=== PATIENT | male | born 1975 | race Two or more races ===

== ENCOUNTER 2016-05-12 09:16 | Inpatient (IN) | payer MEDICAID ==
[~2016-05-12] VITALS: Ht 165.1 cm; Wt 63.5 kg
[2016-05-12 09:18] VITALS: BP 155/95; PULSE 92; RESP 20; TEMP 97.7; O2SAT 99
[2016-05-12 09:34] VITALS: BP 142/94; RESP 18; O2SAT 98
--- NOTE | 2016-05-12 09:55 | PD ---
HPI Chief Complaint: Abdominal Pain Time Seen by Provider: 09:43 Travel History International Travel<30 days: No Contact w/Intl Traveler<30days: No Traveled to known affect area: No History of Present Illness HPI 41-year-old male with no significant past medical history, here for evaluation of left-sided chest discomfort and abdominal discomfort. The patient reports that he has had a cough for the last couple of weeks which is nonproductive. He reports feeling an ache on the left side of his chest when he coughs and takes a deep breath. He also complains of some left upper quadrant abdominal discomfort after eating. No history of abdominal surgeries. No history of cardiac disease. No fevers. PFSH Past Medical History Medical History: Denies Significant Hx Tetanus Vaccination: Never Vaccinated Influenza Vaccination: No ?: Not Past Surgical History Surgical History: No Previous Surgery Social History Alcohol Use: No Tobacco Use: No Allergies-Medications (Allergen,Severity, Reaction): Coded Allergies: No Known Allergies (Unverified , 05/12/16) Reported Meds & Prescriptions Reported Meds & Active Scripts Active No Active Prescriptions or Reported Medications Review of Systems Except as stated in HPI: all other systems reviewed are Neg Physical Exam Narrative GENERAL: Well-developed, well-nourished, comfortable, no acute distress. SKIN: Warm and dry. HEAD: Atraumatic. Normocephalic. EYES: Pupils equal and round. No scleral icterus. No injection or drainage. ENT: Mucous membranes pink and moist. NECK: Trachea midline. No JVD. CARDIOVASCULAR: Regular rate and rhythm. RESPIRATORY: No accessory muscle use. Clear to auscultation. Breath sounds equal bilaterally. GASTROINTESTINAL: Abdomen soft, nondistended. Mild epigastric and left upper quadrant tenderness without peritoneal signs. Normal bowel sounds. MUSCULOSKELETAL: No obvious deformities. No clubbing. No cyanosis. No edema. NEUROLOGICAL: Awake and alert. No obvious cranial nerve deficits. Motor grossly within normal limits. Normal speech. PSYCHIATRIC: Appropriate mood and affect; insight and judgment normal. Data Data Last Documented VS Vital Signs Date Time Temp Pulse Resp B/P Pulse Ox O2 Delivery O2 Flow Rate FiO2 05/12/16 11:39 74 16 154/95 97 Room Air 05/12/16 09:18 97.7 Orders Electrocardiogram (05/12/16 09:46) Ckmb (Isoenzyme) Profile (05/12/16 09:46) Complete Blood Count With Diff (05/12/16 09:46) Comprehensive Metabolic Panel (05/12/16 09:46) D-Dimer (05/12/16 09:46) Magnesium (Mg) (05/12/16 09:46) Prothrombin Time / Inr (Pt) (05/12/16 09:46) Act Partial Throm Time (Ptt) (05/12/16 09:46) Troponin I (05/12/16 09:46) Chest, Single Ap (05/12/16 09:46) Ecg Monitoring (05/12/16 09:46) Iv Access Insert/Monitor (05/12/16 09:46) Oximetry (05/12/16 09:46) Sodium Chloride 0.9% Flush (Ns Flush) (05/12/16 10:00) Lipase (05/12/16 09:46) Al-Mag Hy-Si 40-40-4 Mg/Ml Liq (Mag-Al P (05/12/16 10:00) Lidocaine 2% Viscous (Xylocaine 2% Visco (05/12/16 10:00) Ketorolac Inj (Toradol Inj) (05/12/16 10:00) CKMB (05/12/16 10:00) CKMB% (05/12/16 10:00) Ct Abd/Pel W Iv Contrast(Rout) (05/12/16 ) Ct Pulmonary Angiogram (05/12/16 11:26) Morphine Inj (Morphine Inj) (05/12/16 11:30) Iohexol 350 Inj (Omnipaque 350 Inj) (05/12/16 12:10) Admit To Inpatient (05/12/16 ) Code Status (05/12/16 13:46) Vital Signs (Adult) Q4H (05/12/16 13:46) Activity Oob Ad Lilian (05/12/16 13:46) Intake + Output STEVAN.QSHIFT (05/12/16 13:46) Diet Npo (05/12/16 Lunch) Sodium Chlor 0.9% 1000 Ml Inj (Ns 1000 M (05/12/16 13:46) Sodium Chloride 0.9% Flush (Ns Flush) (05/12/16 14:00) Sodium Chloride 0.9% Flush (Ns Flush) (05/12/16 21:00) Ondansetron Inj (Zofran Inj) (05/12/16 14:00) Magnesium Hydroxide Liq (Milk Of Magnesi (05/12/16 14:00) Scd Bilateral/Knee High STEVAN.BID (05/12/16 13:46) Naloxone Inj (Narcan Inj) (05/12/16 14:00) Inpatient Certification (05/12/16 ) Hepatitis Profile (05/12/16 13:46) Us Abdomen Liver (05/12/16 ) Admit Order (Ed Use Only) (05/12/16 13:59) Labs Laboratory Tests Test 05/12/16 10:00 White Blood Count 5.8 TH/MM3 Red Blood Count 5.00 MIL/MM3 Hemoglobin 15.3 GM/DL Hematocrit 44.8 % Mean Corpuscular Volume 89.5 FL Mean Corpuscular Hemoglobin 30.6 PG Mean Corpuscular Hemoglobin 34.2 % Concent Red Cell Distribution Width 14.6 % Platelet Count 172 TH/MM3 Mean Platelet Volume 10.0 FL Neutrophils (%) (Auto) 54.4 % Lymphocytes (%) (Auto) 30.5 % Monocytes (%) (Auto) 13.6 % Eosinophils (%) (Auto) 1.0 % Basophils (%) (Auto) 0.5 % Neutrophils # (Auto) 3.2 TH/MM3 Lymphocytes # (Auto) 1.8 TH/MM3 Monocytes # (Auto) 0.8 TH/MM3 Eosinophils # (Auto) 0.1 TH/MM3 Basophils # (Auto) 0.0 TH/MM3 CBC Comment DIFF FINAL Differential Comment Prothrombin Time 10.7 SEC Prothromb Time International 1.0 RATIO Ratio Activated Partial 28.4 SEC Thromboplast Time D-Dimer Quantitative (PE/DVT) 0.99 MG/L FEU Sodium Level 136 MEQ/L Potassium Level 4.2 MEQ/L Chloride Level 99 MEQ/L Carbon Dioxide Level 27.5 MEQ/L Anion Gap 10 MEQ/L Blood Urea Nitrogen 11 MG/DL Creatinine 0.98 MG/DL Estimat Glomerular Filtration 85 ML/MIN Rate Random Glucose 96 MG/DL Calcium Level 8.9 MG/DL Magnesium Level 2.3 MG/DL Total Bilirubin 7.4 MG/DL Aspartate Amino Transf 1823 U/L (AST/SGOT) Alanine Aminotransferase 3662 U/L (ALT/SGPT) Alkaline Phosphatase 199 U/L Total Creatine Kinase 139 U/L Creatine Kinase MB 1.8 NG/ML Troponin I LESS THAN 0.02 NG/ML Total Protein 9.0 GM/DL Albumin 3.7 GM/DL Lipase 142 U/L [facility] Medical Decision Making Medical Screen Exam Complete: Yes Emergency Medical Condition: Yes Interpretation(s) EKG: Sinus, rate 72, normal axis, normal intervals, early repolarization, type III Brugada pattern Differential Diagnosis ACS, pneumothorax, pericarditis, PE, pneumonia, pleurisy, musculoskeletal pain, gastritis, peptic ulcer disease, pancreatitis, hepatobiliary disease Narrative Course Vital signs show heart rate 92, blood pressure 155/95, pulse ox 99% on room air , oral temp of 97.7F. CBC is unremarkable. CMP is remarkable for total bili 7.4, AST 1823, ALT 3662, alkaline phosphatase 199, otherwise unremarkable. Lipase is 142. Cardiac enzymes are negative. D-dimer is 0.99. Patient denies alcohol abuse, stating that he has not had an alcoholic beverage in the last 20 years.. He also denies illicit drug use. CT abdomen pelvis will be ordered to look for biliary obstruction as well as CT pulmonary angiogram for elevated d-dimer to rule out PE. CT abdomen pelvis: CONCLUSION: Possible medullary nephrocalcinosis. No acute CT findings in the abdomen or pelvis. CT pulmonary angiogram: CONCLUSION: 1. Minimal right basilar dependent atelectatic changes. 2. Otherwise negative. No acute infiltrate or pulmonary embolus to explain current clinical symptoms. The patient was made aware of all findings. He is still having some left upper quadrant abdominal discomfort. He will be admitted for further treatment and evaluation of acute hepatitis, hyperbilirubinemia. Case discussed with hospitalist Dr Zapien who will admit the patient to her service. Diagnosis Primary Impression: Acute hepatitis Additional Impression: Hyperbilirubinemia Admitting Information Admitting Physician Requests: Admit Scripts No Active Prescriptions or Reported Meds Hubert Osorio MD May 12, 2016 09:55
[2016-05-12] MEDS ORDERED: ALUMINUM/MAGNESIUM/SIMETH 30 ML CUP PO ONE (10:00)
[2016-05-12] MEDS ORDERED: SODIUM CHLORIDE 0.9% FLUSH 5 ML FLUSH IVF PRN (10:00)
[2016-05-12] MEDS ORDERED: LIDOCAINE VISCOUS 2% SOLN 15 ML UDC PO ONE (10:00)
[2016-05-12] MEDS ORDERED: KETOROLAC TROMETHAMINE 30 MG/ML (IVP) VIAL IV PUSH ONE (10:00)
[2016-05-12 10:30] LABS: AUTOMATED NEUTROPHIL # 3.2 TH/MM3 (1.8-7.7); BASOPHIL % 0.5 % (0.0-2.0); EOSINOPHIL # 0.1 TH/MM3 (0-0.4); HEMATOCRIT 44.8 % (39.0-51.0); HEMO FLAGS DIFF FINAL; LYMPH % 30.5 % (9.0-44.0); LYMPHOCYTE # 1.8 TH/MM3 (1.0-4.8); MEAN CELL VOLUME 89.5 FL (80.0-100.0); MEAN CORPUSCULAR HEMOGLOBIN 30.6 PG (27.0-34.0); MEAN CORPUSCULAR HGB CONC 34.2 % (32.0-36.0); MONO % 13.6 % (0.0-8.0); NEUT % 54.4 % (16.0-70.0); PLATELET COUNT 172 TH/MM3 (150-450); RED CELL DISTRIBUTION WIDTH 14.6 % (11.6-17.2); WHITE BLOOD COUNT 5.8 TH/MM3 (4.0-11.0)
[2016-05-12 10:47] LABS: APTT (PATIENT) 28.4 SEC (24.3-30.1); PROTHROMBIN TIME - PATIENT 10.7 SEC (9.8-11.6)
[2016-05-12 10:56] LABS: ANION GAP 10 MEQ/L (5-15); BICARBONATE 27.5 MEQ/L (21.0-32.0); BLOOD UREA NITROGEN 11 MG/DL (7-18); CHLORIDE 99 MEQ/L (98-107); GLOMERULAR FILTRATION RATE 85 ML/MIN (>89); MAGNESIUM 2.3 MG/DL (1.5-2.5); POTASSIUM 4.2 MEQ/L (3.5-5.1); SODIUM (NA) 136 MEQ/L (136-145)
[2016-05-12 11:11] LABS: ALKALINE PHOSPHATASE 199 U/L (45-117); ALT (GPT) 3662 U/L (12-78); AST (GOT) 1823 U/L (15-37); CREATINE KINASE 139 U/L (39-308); TOTAL BILIRUBIN ADULT 7.4 MG/DL (0.2-1.0)
[2016-05-12 11:24] LABS: CKMB 1.8 NG/ML (0.5-3.6)
[2016-05-12] MEDS ORDERED: MORPHINE SULFATE 4 MG/ML INJ IV PUSH ONE (11:30)
[2016-05-12 11:39] VITALS: BP 154/95; PULSE 74; RESP 16; O2SAT 97
[2016-05-12] MEDS ORDERED: IOHEXOL 350 MG/ML 10 ML VIAL (for RAD DIAG) IV ONE (12:10)
--- NOTE | 2016-05-12 12:52 | RADRPT ---
EXAM DATE/TIME: 05/12/2016 11:55 [facility] COMPARISON: No previous studies available for comparison. INDICATIONS : Chest pain. IV CONTRAST: 75 cc Omnipaque 350 (iohexol) IV ; Cumulative dose for multiple exams. RADIATION DOSE: 8.30 CTDIvol (mGy) ; Combined studies MEDICAL HISTORY : None SURGICAL HISTORY : None. ENCOUNTER: Initial ACUITY: 2 weeks PAIN SCALE: 4/10 LOCATION: Bilateral chest TECHNIQUE: Volumetric scanning of the chest was performed using a pulmonary embolism protocol MIP images were re constructed. Using automated exposure control and adjustment of the mA and/or kV according to patien t size, radiation dose was kept as low as reasonably achievable to obtain optimal diagnostic quality images. FINDINGS: PULMONARY ARTERIES: No filling defects are seen in the pulmonary arteries through the segmental level. LUNGS: There is no consolidation or pneumothorax . No concerning pulmonary nodule is visualized. Minimal ri ght basilar atelectatic changes. PLEURAE: There is no pleural thickening or pleural effusion. MEDIASTINUM: There is good visualization of the great vessels of the middle mediastinum. No evidence of mediastin al or hilar adenopathy/mass. MUSCULOSKELETAL: Within normal limits for patient age. MISCELLANEOUS: The visualized upper abdominal organs demonstrate no acute abnormality. Prominent left hepatic lobe w hich actually wraps around the convexity of the spleen. CONCLUSION: 1. Minimal right basilar dependent atelectatic changes. 2. Otherwise negative. No acute infiltrate or pulmonary embolus to explain current clinical symptoms. Yo Cage MD on May 12, 2016 at 12:49 Board Certified Radiologist. This report was verified electronically.
--- NOTE | 2016-05-12 12:55 | RADRPT ---
EXAM DATE/TIME: 05/12/2016 10:15 [facility] COMPARISON: No previous studies available for comparison. INDICATIONS : Chest pain. MEDICAL HISTORY : None. SURGICAL HISTORY : None. ENCOUNTER: Initial ACUITY: 1 day PAIN SCORE: 5/10 LOCATION: Left chest FINDINGS: A single view of the chest demonstrates the lungs to be symmetrically aerated without evidence of mas s, infiltrate or effusion. The cardiomediastinal contours are unremarkable. Osseous structures are intact. CONCLUSION: No acute cardiopulmonary process. Yo Cage MD on May 12, 2016 at 12:54 Board Certified Radiologist. This report was verified electronically.
--- NOTE | 2016-05-12 13:11 | RADRPT ---
EXAM DATE/TIME: 05/12/2016 11:58 [facility] COMPARISON: CT PULMONARY ANGIOGRAM, May 12, 2016, 11:55. INDICATIONS : Abdomen pain. IV CONTRAST: 75 cc Omnipaque 350 (iohexol) IV ; Cumulative dose for multiple exams. ORAL CONTRAST: No oral contrast ingested. RADIATION DOSE: 8.06 CTDIvol (mGy) ; Combined studies MEDICAL HISTORY : None SURGICAL HISTORY : None. ENCOUNTER: Initial ACUITY: 1 day PAIN SCALE: 4/10 LOCATION: Bilateral abdomen pain. TECHNIQUE: Volumetric scanning of the abdomen and pelvis was performed. Using automated exposure control and ad justment of the mA and/or kV according to patient size, radiation dose was kept as low as reasonably achievable to obtain optimal diagnostic quality images. FINDINGS: LOWER LUNGS: The visualized lower lungs are clear. LIVER: Homogeneous density without lesion. There is no dilation of the biliary tree. No calcified gallston es. SPLEEN: Normal size without lesion. PANCREAS: Within normal limits. KIDNEYS: Extremely dense opacification of the medullary pyramids which may reflect fortuitous dense contrast o pacification or medullary nephrocalcinosis. This could be better evaluated with noncontrast scanning at some point if clinically indicated. No evidence of focal mass or hydronephrosis. ADRENAL GLANDS: Within normal limits. VASCULAR: There is no aortic aneurysm. BOWEL/MESENTERY: The stomach, small bowel, and colon demonstrate no acute abnormality. There is no free intraperitone al air or fluid. ABDOMINAL WALL: Within normal limits. RETROPERITONEUM: There is no lymphadenopathy. BLADDER: No wall thickening or mass. REPRODUCTIVE: Within normal limits. INGUINAL: There is no lymphadenopathy or hernia. MUSCULOSKELETAL: Small enostosis E. 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 No acute CT findings in the abdomen or pelvis. Alber Vivar MD on May 12, 2016 at 13:04 Board Certified Radiologist. This report was verified electronically.
[2016-05-12] MEDS ORDERED: MAGNESIUM HYDROXIDE SUSP 30 ML CUP PO PRN (14:00)
[2016-05-12] MEDS ORDERED: NALOXONE HCL 0.4 MG/ML AMP IV PRN (14:00)
[2016-05-12] MEDS ORDERED: ONDANSETRON HCL 4 MG/2 ML VIAL IVP PRN (14:00)
[2016-05-12] MEDS ORDERED: SODIUM CHLORIDE 0.9% FLUSH 5 ML FLUSH FLUSH PRN (14:00)
--- NOTE | 2016-05-12 14:18 | EKG ---
Date Performed: 05/12/2016 Time Performed: 09:56:07 PTAGE: 41 years EKG: Sinus rhythm POSSIBLE RIGHT VENTRICULAR CONDUCTION DELAY MINIMAL VOLTAGE CRITERIA FOR LVH, CONSIDER NORMAL VARIAN T ST ELEVATION, PROBABLY EARLY REPOLARIZATION TYPE 3 BRUGADA PATTERN (NON-DIAGNOSTIC) BORDERLINE ECG NO PREVIOUS TRACING DOCTOR: Jan Corbett Interpretating Date/Time 05/12/2016 14:16:26
--- NOTE | 2016-05-12 14:18 | HHI.HP ---
[facility] No Primary Care Physician Admission Diagnosis acute hepatitis, hyperbilirubinemia Diagnoses: Chief Complaint: Chest pain rating down to the left side of the abdomen Travel History International Travel<30 Days: No Contact w/Intl Traveler <30 Da: No Traveled to Known Affected Are: No History of Present Illness This is a 41-year-old male with no past medical history whose presented with a cough that produces left-sided chest pain that went down to the abdomen for the past 2 weeks. Patient is [place]er-speaking but understands B[place]an. His stepson is at the bedside. Patient declined medical claims representative and wanted his stepson to translate. This pain has been intermittent and resolved on its own. Patient stated that the cough elicited the pain. He denies any nausea or vomiting. Denied any diarrhea or constipation. Patient stated that he has not had any recent travels. Patient stated that he denied any vaccination for hepatitis. Denies any history of alcohol use. When I asked patient about what the yellowing of his skin patient did not notice it. His also did not notice it. is at the bedside. No family history of any cancer. Patient stated all family members are healthy. Review of Systems Constitutional: DENIES: Diaphoretic episodes, Fatigue, Fever, Weight gain, Weight loss, Chills, Dizziness, Change in appetite, Night Sweats Endocrine: DENIES: Heat/cold intolerance, Polydipsia, Polyuria, Polyphagia Eyes: DENIES: Blurred vision, Diplopia, Eye inflammation, Eye pain, Vision loss , Photosensitivity, Double Vision Ears, nose, mouth, throat: DENIES: Tinnitus, Hearing loss, Vertigo, Nasal discharge, Oral lesions, Throat pain, Hoarseness, Ear Pain, Running Nose, Epistaxis, Sinus Pain, Toothache, Odynophagia Respiratory: DENIES: Apneas, Cough, Snoring, Wheezing, Hemoptysis, Sputum production, Shortness of breath Cardiovascular: COMPLAINS OF: Chest pain Gastrointestinal: COMPLAINS OF: Abdominal pain Genitourinary: DENIES: Sexual dysfunction, Urinary frequency, Urinary incontinence, Urgency, Hematuria, Dysuria, Nocturia, Penile Discharge, Testicular Pain, Testicular Swelling Musculoskeletal: DENIES: Joint pain, Muscle aches, Stiffness, Joint Swelling, Back pain, Neck pain Integumentary: DENIES: Abnormal pigmentation, Nail changes, Pruritus, Rash Hematologic/lymphatic: DENIES: Bruising, Lymphadenopathy Immunologic/allergic: DENIES: Eczema, Urticaria Neurologic: DENIES: Abnormal gait, Headache, Localized weakness, Paresthesias, Seizures, Speech Problems, Tremor, Poor Balance Psychiatric: DENIES: Anxiety, Confusion, Mood changes, Depression, Hallucinations, Agitation, Suicidal Ideation, Homicidal Ideation, Delusions Past Family Social History Past Medical History Denies any past medical history. Past Surgical History Denies any past surgical history. Reported Medications Reported Meds & Active Scripts Active No Active Prescriptions or Reported Medications Allergies: Coded Allergies: No Known Allergies (Unverified , 05/12/16) Active Ordered Medications Current Medications IV Flush (NS Flush) 2 ml UNSCH PRN IVF FLUSH AFTER USING IV ACCESS Last administered on 05/12/16 11:38; Start 05/12/16 at 10:00; Stop 05/12/16 at 14:02 ; Status DC Al Hydrox/Mg Hydrox/Simethicone (Mag-Al Plus Susp Liq) 30 ml ONCE ONCE PO Last administered on 05/12/16 10:12; Start 05/12/16 at 10:00; Stop 05/12/16 at 10:01; Status DC Lidocaine HCl (Xylocaine 2% Viscous) 15 ml ONCE ONCE PO Last administered on 10:12; Start 05/12/16 at 10:00; Stop 05/12/16 at 10:01; Status DC Ketorolac Tromethamine (Toradol Inj) 30 mg ONCE ONCE IV PUSH Last administered on 05/12/16 10:12; Start 05/12/16 at 10:00; Stop 05/12/16 at 10:01 ; Status DC Morphine Sulfate (Morphine Inj) 4 mg ONCE ONCE IV PUSH Last administered on 11:38; Start 05/12/16 at 11:30; Stop 05/12/16 at 11:31; Status DC Iohexol 75 ml 75 ml STK-MED ONCE IV Last administered on 05/12/16 12:10; Start 05/12/16 at 12:10; Stop 05/12/16 at 12:11; Status DC Sodium Chloride (NS 1000 ml Inj) 1,000 ml @ 100 mls/hr Q10H IV ; Start at 13:46 IV Flush (NS Flush) 2 ml UNSCH PRN FLUSH FLUSH AFTER USING IV ACCESS; Start at 14:00 IV Flush (NS Flush) 2 ml BID FLUSH ; Start 05/12/16 at 21:00 Ondansetron HCl (Zofran Inj) 4 mg Q6H PRN IVP NAUSEA OR VOMITING; Start at 14:00 Magnesium Hydroxide (Milk Of Magnesia Liq) 30 ml Q12H PRN PO CONSTIPATION; Start 05/12/16 at 14:00 Naloxone HCl (Narcan Inj) 0.4 mg UNSCH PRN IV SEE LABEL COMMENTS; Start at 14:00 Family History Patient denies any family history of cardiovascular disease, diabetes, liver disease or any cancer. He stated all family members are relatively healthy. Social History Patient was a home with his in [place]. Denies any tobacco, alcohol, and illicit drug use. Physical Exam Vital Signs Vital Signs Date Time Temp Pulse Resp B/P Pulse Ox O2 Delivery O2 Flow Rate FiO2 05/12/16 11:39 74 16 154/95 97 Room Air 05/12/16 09:34 18 142/94 98 Room Air 05/12/16 09:34 18 05/12/16 09:18 97.7 92 20 155/95 99 Room Air Physical Exam GENERAL: This is a well-nourished, well-developed patient, in no apparent distress. SKIN: No rashes, ecchymoses or lesions. Cool and dry. Patient appeared jaundiced. HEAD: Atraumatic. Normocephalic. No temporal or scalp tenderness. EYES: Pupils equal round and reactive. Extraocular motions intact. + scleral icterus. No injection or drainage. ENT: Nose without bleeding, purulent drainage or septal hematoma. Throat without erythema, tonsillar hypertrophy or exudate. Uvula midline. Airway patent. NECK: Trachea midline. No JVD or lymphadenopathy. Supple, nontender, no meningeal signs. CARDIOVASCULAR: Regular rate and rhythm without murmurs, gallops, or rubs. RESPIRATORY: Clear to auscultation. Breath sounds equal bilaterally. No wheezes , rales, or rhonchi. GASTROINTESTINAL: Abdomen soft, nondistended. mild tenderness with deep palpation in the left upper quadrant area. No hepato-splenomegaly, or palpable masses. No guarding. MUSCULOSKELETAL: Extremities without clubbing, cyanosis, or edema. No joint tenderness, effusion, or edema noted. No calf tenderness. Negative Homans sign bilaterally. NEUROLOGICAL: Awake and alert. Cranial nerves II through XII intact. Motor and sensory grossly within normal limits. Five out of 5 muscle strength in all muscle groups. Normal speech. Laboratory Laboratory Tests Test 05/12/16 10:00 White Blood Count 5.8 Red Blood Count 5.00 Hemoglobin 15.3 Hematocrit 44.8 Mean Corpuscular Volume 89.5 Mean Corpuscular Hemoglobin 30.6 Mean Corpuscular Hemoglobin 34.2 Concent Red Cell Distribution Width 14.6 Platelet Count 172 Mean Platelet Volume 10.0 Neutrophils (%) (Auto) 54.4 Lymphocytes (%) (Auto) 30.5 Monocytes (%) (Auto) 13.6 Eosinophils (%) (Auto) 1.0 Basophils (%) (Auto) 0.5 Neutrophils # (Auto) 3.2 Lymphocytes # (Auto) 1.8 Monocytes # (Auto) 0.8 Eosinophils # (Auto) 0.1 Basophils # (Auto) 0.0 CBC Comment DIFF FINAL Differential Comment Prothrombin Time 10.7 Prothromb Time International 1.0 Ratio Activated Partial 28.4 Thromboplast Time D-Dimer Quantitative (PE/DVT) 0.99 Sodium Level 136 Potassium Level 4.2 Chloride Level 99 Carbon Dioxide Level 27.5 Anion Gap 10 Blood Urea Nitrogen 11 Creatinine 0.98 Estimat Glomerular Filtration 85 Rate Random Glucose 96 Calcium Level 8.9 Magnesium Level 2.3 Total Bilirubin 7.4 Aspartate Amino Transf 1823 (AST/SGOT) Alanine Aminotransferase 3662 (ALT/SGPT) Alkaline Phosphatase 199 Total Creatine Kinase 139 Creatine Kinase MB 1.8 Troponin I LESS THAN 0.02 Total Protein 9.0 Albumin 3.7 Lipase 142 Result Diagram: 05/12/16 1000 05/12/16 [address] Angiography 05/12/16 1126 Signed Impressions: Service Date/Time: Thursday, May 12, 2016 11:55 - CONCLUSION: 1. Minimal right basilar dependent atelectatic changes. 2. Otherwise negative. No acute infiltrate or pulmonary embolus to explain current clinical symptoms. Yo Cage MD Chest X-Ray 05/12/16 0946 Signed Impressions: Service Date/Time: Thursday, May 12, 2016 10:15 - CONCLUSION: No acute cardiopulmonary process. 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 No acute CT findings in the abdomen or pelvis. Alber Vivar MD Assessment and Plan Assessment and Plan 41-year-old male with left-sided chest pain radiating down to the upper abdomen. left sided chest pain -Occurred with cough. May be secondary to pleurisy. -Unlikely cardiac in nature. Will get troponin and monitor. Jaundice -Patient has a questionable left upper quadrant pain that is not that significant. He does not have any right upper quadrant pain and is asymptomatic. -LFTs are elevated including bilirubin. Lipase negative. -CT scan of abdomen and chest were review and not impressive. -We'll get liver ultrasound and hepatitis panel. also get lipid panel. Consult GI. Elevated liver enzymes. -See treatment as above. -We will continue to trend and monitor. -Avoid medications are excreted by liver and adjust accordingly. DVTs prophylaxis SCDs Code Status full Discussed Condition With patient, his and step son Tate who translated. Physician Certification 2 Midnight Certification Type: Admission for Inpatient Services Order for Inpatient Services The services are ordered in accordance with Medicare regulations or non- Medicare payer requirements, as applicable. In the case of services not specified as inpatient-only, they are appropriately provided as inpatient services in accordance with the 2-midnight benchmark. Estimated LOS (days): 2 2 days is the estimated time the patient will need to remain in the hospital, assuming treatment plan goals are met and no additional complications. Post-Hospital Plan: Katlin Wilder MD May 12, 2016 14:18
--- NOTE | 2016-05-12 15:45 | RADRPT ---
EXAM DATE/TIME: 05/12/2016 14:48 [facility] COMPARISON: No previous studies available for comparison. INDICATIONS : Increased lab values. MEDICAL HISTORY : Abdomen pain. SURGICAL HISTORY : None. ENCOUNTER: Initial ACUITY: 1 day PAIN SCORE: 3/10 LOCATION: Right upper quadrant MEASUREMENTS: LIVER: 16.4 cm length COMMON DUCT: 3 mm RIGHT KIDNEY: 11.2 x 4.5 x 5.4 cm SPLEEN: 12.9 cm length FINDINGS: LIVER: Mild hepatomegaly is noted. Normal echotexture without focal lesion or ductal dilatation. COMMON DUCT: No intraluminal mass or stone visualized. GALLBLADDER: Contains no stones, demonstrates no wall thickening or pericholecystic fluid. PANCREAS: The visualized portions are within normal limits. RIGHT KIDNEY: No hydronephrosis or mass. There is a 5 mm calcified nonobstructing right midpole renal calculus SPLEEN: Mild splenomegaly is noted. No focal lesion. An accessory spleen measuring 1.7 cm is noted. CONCLUSION: 1. Mild hepatosplenomegaly. 2. 5 mm calcified nonobstructing midpole right renal calculus. Tyrell Wilkinson MD on May 12, 2016 at 15:41 Board Certified Radiologist. This report was verified electronically.
[2016-05-12] MEDS: SODIUM CHLOR 0.9% 1000 ML INJ 1,000 ML IV SCH ×2 (16:19→23:19)
[2016-05-12 16:25] VITALS: BP 150/83; PULSE 70; RESP 17; O2SAT 98
[2016-05-12 20:00] VITALS: BP 123/79; PULSE 57; RESP 20; TEMP 97.7; O2SAT 97
[2016-05-12] MEDS: SODIUM CHLORIDE 0.9% FLUSH 5 ML FLUSH FLUSH SCH (21:00)
[2016-05-13] VITALS: BP 126/78; PULSE 69; RESP 19; TEMP 97.6; O2SAT 95
[2016-05-13 00:52] LABS: ANION GAP 10 MEQ/L (5-15); BICARBONATE 27.3 MEQ/L (21.0-32.0); BLOOD UREA NITROGEN 12 MG/DL (7-18); CHLORIDE 104 MEQ/L (98-107); SODIUM (NA) 141 MEQ/L (136-145)
[2016-05-13 00:58] LABS: ALKALINE PHOSPHATASE 152 U/L (45-117); ALT (GPT) 3158 U/L (12-78); AST (GOT) 1556 U/L (15-37); INDIRECT BILIRUBIN 1.7 MG/DL (0.0-0.8); TOTAL BILIRUBIN ADULT 7.1 MG/DL (0.2-1.0)
[2016-05-13 05:14] LABS: MEAN CELL VOLUME 88.7 FL (80.0-100.0); PLATELET COUNT 167 TH/MM3 (150-450); RED BLOOD COUNT 4.51 MIL/MM3 (4.50-5.90); RED CELL DISTRIBUTION WIDTH 14.5 % (11.6-17.2); REVIEW FLAG FINAL; WHITE BLOOD COUNT 4.6 TH/MM3 (4.0-11.0)
[2016-05-13] MEDS: SODIUM CHLORIDE 0.9% FLUSH 5 ML FLUSH FLUSH SCH ×2 (07:58→21:00)
[2016-05-13 08:00] VITALS: BP 130/74; PULSE 72; RESP 18; TEMP 97.4; O2SAT 98
--- NOTE | 2016-05-13 10:18 | EKG ---
Date Performed: 05/12/2016 Time Performed: 16:38:27 PTAGE: 41 years EKG: Sinus rhythm POSSIBLE RIGHT VENTRICULAR CONDUCTION DELAY ST ELEVATION, PROBABLY EARLY REPOLARIZATION PREVIOUS TRACING : 05/12/2016 09.56 DOCTOR: Boom Lynn Interpretating Date/Time 05/13/2016 10:16:27
[2016-05-13] MEDS: SODIUM CHLOR 0.9% 1000 ML INJ 1,000 ML IV SCH ×2 (10:25→21:59)
[2016-05-13 12:00] VITALS: BP 144/71; PULSE 75; RESP 16; TEMP 97.2; O2SAT 99
--- NOTE | 2016-05-13 12:01 | PD.CONS ---
HPI History of Present Illness This is a 41 year old male who came to the ER for evaluation of left-sided chest and abdominal discomfort. He reported a nonproductive cough for a few weeks and started having a discomfort described as an ache on the left side of his chest, aggravated by coughing and deep breathing. He also complained of some LUQ discomfort after eating. He was noted to have significantly elevated LFTs and admitted for further evaluation. His troponins have been negative and it is suspected that his chest pain is pleuritic in nature. On admission, he was noted to have elevated LFTs with total bilirubin 7.4, AST 1823, ALT 3662, alkaline phosphatase 199. His coags are normal. His platelets are normal. His albumin was normal on admission. Hepatitis panel is pending. He reports that his chest pain and abdominal discomfort have since subsided. He has a mild epigastric tenderness in his LUQ on exam, but denies pain. He denies any fevers, chills, headaches, nausea, vomiting, current abdominal pain, constipation, diarrhea, melena, or red blood in his stool. He denies any weakness or malaise. He denies any known hx of liver disease such as hepatitis. He denies the use of any alcohol. He denies the use of any Tylenol or Tylenol containing products. When his LUQ discomfort originally began, he did take a liquid antacid and reports that this helped, but is not taking this now. He did start taking a men's once a day vitamin about 2 weeks ago and a couple of time, he forgot to take this and so a couple of days, he took two at a time. 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 (Ledy Sanchez) [facility] Past Medical History Denies Past Surgical History Denies (Ledy Sanchez) Coded Allergies: No Known Allergies (Unverified , 05/12/16) Medications Allergies Coded Allergies Type Severity Reaction Last Updated Verified No Known Allergies 05/12/16 No Active Scripts Medications Dose Route/Sig Days Date Category No Active Prescriptions or Reported Medications Rx Family History Patient denies any family history of cardiovascular disease, diabetes, liver disease or any cancer. He stated all family members are relatively healthy. Social History Denies any tobacco, alcohol, and illicit drug use. (Ledy Sanchez CHAYA) Review of Systems Constitutional: DENIES: Fatigue, Fever, Chills Respiratory: DENIES: Cough Cardiovascular: COMPLAINS OF: Chest pain (resolved now) Gastrointestinal: COMPLAINS OF: Abdominal pain, DENIES: Black stools, Bloody stools, Constipation, Diarrhea, Nausea, Vomiting, Anorexia, Swelling of Abdomen , Heartburn, Hematemesis Integumentary: COMPLAINS OF: Jaundice, DENIES: Abnormal pigmentation Hematologic/lymphatic: DENIES: Bruising Psychiatric: DENIES: Confusion (Ledy Sanchez CHAYA) GI Exam Vitals I&O Vital Signs Date Time Temp Pulse Resp B/P Pulse Ox O2 Delivery O2 Flow Rate FiO2 05/13/16 08:00 97.4 72 18 130/74 98 05/13/16 00:00 97.6 69 19 126/78 95 05/12/16 20:00 97.7 57 20 123/79 97 05/12/16 16:25 70 17 150/83 98 Room Air I/O 05/12/16 05/12/16 05/12/16 05/13/16 05/13/16 05/13/16 07:00 15:00 23:00 07:00 15:00 23:00 Intake Total 660 ml 563 ml Output Total 250 ml Balance 660 ml 313 ml Intake Oral 0 ml 0 ml IV Total 660 ml 563 ml Output Urine Total 250 ml # Voids 0 # Bowel Movements 0 [address] Angiography 05/12/16 1126 Signed Impressions: Service Date/Time: Thursday, May 12, 2016 11:55 - CONCLUSION: 1. Minimal right basilar dependent atelectatic changes. 2. Otherwise negative. No acute infiltrate or pulmonary embolus to explain current clinical symptoms. Yo Cage MD Chest X-Ray 05/12/16 0946 Signed Impressions: Service Date/Time: Thursday, May 12, 2016 10:15 - CONCLUSION: No acute cardiopulmonary process. Yo Cage MD Liver Ultrasound 05/12/16 0000 Signed Impressions: Service Date/Time: Thursday, May 12, 2016 14:48 - CONCLUSION: 1. Mild hepatosplenomegaly. 2. 5 mm calcified nonobstructing midpole right renal calculus. Tyrell Wilkinson MD Abdomen/Pelvis CT 05/12/16 0000 Signed Impressions: Service Date/Time: Thursday, May 12, 2016 11:58 - CONCLUSION: Possible medullary nephrocalcinosis. No acute CT findings in the abdomen or pelvis. Alber Vivar MD Laboratory Test 05/12/16 05/12/16 05/13/16 16:00 23:50 04:43 Troponin I LESS THAN 0.02 LESS THAN 0.02 NG/ML NG/ML Sodium Level 141 MEQ/L Potassium Level 4.0 MEQ/L Chloride Level 104 MEQ/L Carbon Dioxide Level 27.3 MEQ/L Anion Gap 10 MEQ/L Blood Urea Nitrogen 12 MG/DL Creatinine 0.87 MG/DL Random Glucose 77 MG/DL Calcium Level 8.6 MG/DL Total Bilirubin 7.1 MG/DL Direct Bilirubin 5.4 MG/DL Indirect Bilirubin 1.7 MG/DL Aspartate Amino Transf 1556 U/L (AST/SGOT) Alanine Aminotransferase 3158 U/L (ALT/SGPT) Alkaline Phosphatase 152 U/L Total Protein 7.3 GM/DL Albumin 3.2 GM/DL White Blood Count 4.6 TH/MM3 Red Blood Count 4.51 MIL/MM3 Hemoglobin 14.0 GM/DL Hematocrit 40.0 % Mean Corpuscular Volume 88.7 FL Mean Corpuscular Hemoglobin 31.0 PG Mean Corpuscular Hemoglobin 35.0 % Concent Red Cell Distribution Width 14.5 % Platelet Count 167 TH/MM3 Mean Platelet Volume 10.1 FL Physical Examination HEENT: Normocephalic; atraumatic; + jaundice. CHEST: CTA CARDIAC: RRR ABDOMEN: Soft, nondistended, mild LUQ tenderness; no hepatosplenomegaly; bowel sounds are present in all four quadrants. EXTREMITIES: No clubbing, cyanosis, or edema. SKIN: Normal; no rash; + jaundice. 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 (Ledy Sanchez) Assessment and Plan Plan ASSESSMENT: - Acute hepatitis, elevated LFTs. Abdomen/Pelvis CT (05/12/16)----> Possible medullary nephrocalcinosis. No acute CT findings in the abdomen or pelvis. Liver Ultrasound (05/12/16)----> 1. Mild hepatosplenomegaly. 2. 5 mm calcified nonobstructing midpole right renal calculus. On admission, he was noted to have elevated LFTs with total bilirubin 7.4, AST 1823, ALT 3662, alkaline phosphatase 199. These are essentially unchanged today. No etoh, no tylenol use, only new meds was a liquid antacid and he recently started a men's once day mvi. One tattoo, performed in [facility] many years ago. No new sexual partners. Hepatitis profile pending. Will await this. Liver workup ordered. - LUQ Pain. Improved. He had with left sided chest pain after nonproductive. He denies pain at this time, but has mild LUQ tenderness on exam. - Left sided chest pain. Troponins were negative. Likely pleuritc. Resolved. PLAN: - Regular diet - Await hepatitis panel - AFP - ANIL, ASMA, AMA - Ceruloplasmin, Alpha 1 antitrypsin - Ferritin, Iron saturation - Monitor LFT - Acetaminophen level - Supportive care - Further recommendations to follow based on results of above - Pt seen and examined by Dr. Montes and myself and this note is written on his behalf (Ledy Sanchez) Physician Comments seen, examined agree with above (Iris Montes MD) Ledy Sanchez May 13, 2016 12:01 Iris Montes MD May 13, 2016 16:45
[2016-05-13 13:25] LABS: TRANSFERRIN IRON PROFILE 291 MG/DL (200-360)
[2016-05-13 13:40] LABS: FERRITIN 2162 NG/ML (26-388)
[2016-05-13 13:41] LABS: ACETAMINOPHEN LESS THAN 2.0 MCG/ML (10.0-30.0)
--- NOTE | 2016-05-13 13:41 | HHI.PR ---
Subjective Remarks f/u for abdominal pain, chest pain. patient denied any pain. He is asking to eat. 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 he is responding appropriately. Objective Vitals Vital Signs Date Time Temp Pulse Resp B/P Pulse Ox O2 Delivery O2 Flow Rate FiO2 05/13/16 12:00 97.2 75 16 144/71 99 05/13/16 08:00 97.4 72 18 130/74 98 05/13/16 00:00 97.6 69 19 126/78 95 05/12/16 20:00 97.7 57 20 123/79 97 05/12/16 16:25 70 17 150/83 98 Room Air I/O 05/12/16 05/12/16 05/12/16 05/13/16 05/13/16 05/13/16 07:00 15:00 23:00 07:00 15:00 23:00 Intake Total 660 ml 563 ml Output Total 250 ml Balance 660 ml 313 ml Intake Oral 0 ml 0 ml IV Total 660 ml 563 ml Output Urine Total 250 ml # Voids 0 # Bowel Movements 0 0 Result Diagram: 05/13/16 0443 05/12/[address] Angiography 05/12/16 1126 Signed Impressions: Service Date/Time: Thursday, May 12, 2016 11:55 - CONCLUSION: 1. Minimal right basilar dependent atelectatic changes. 2. Otherwise negative. No acute infiltrate or pulmonary embolus to explain current clinical symptoms. Yo Cage MD Chest X-Ray 05/12/16 0946 Signed Impressions: Service Date/Time: Thursday, May 12, 2016 10:15 - CONCLUSION: No acute cardiopulmonary process. Yo Cage MD Liver Ultrasound 05/12/16 0000 Signed Impressions: Service Date/Time: Thursday, May 12, 2016 14:48 - CONCLUSION: 1. Mild hepatosplenomegaly. 2. 5 mm calcified nonobstructing midpole right renal calculus. Tyrell Wilkinson MD Abdomen/Pelvis CT 05/12/16 0000 Signed Impressions: Service Date/Time: Thursday, May 12, 2016 11:58 - CONCLUSION: Possible medullary nephrocalcinosis. No acute CT findings in the abdomen or pelvis. Alber Vivar MD Objective Remarks GENERAL: SKIN: Warm and dry.mildly jaundice. HEAD: Normocephalic. EYES: + scleral icterus improved. No injection or drainage. NECK: Supple, trachea midline. No JVD or lymphadenopathy. CARDIOVASCULAR: Regular rate and rhythm without murmurs, gallops, or rubs. RESPIRATORY: Breath sounds equal bilaterally. No accessory muscle use. GASTROINTESTINAL: Abdomen soft, non-tender, nondistended. MUSCULOSKELETAL: No cyanosis, or edema. BACK: Nontender without obvious deformity. No CVA tenderness. Medications and IVs Current Medications IV Flush (NS Flush) 2 ml UNSCH PRN IVF FLUSH AFTER USING IV ACCESS Last administered on 05/12/16 11:38; Start 05/12/16 at 10:00; Stop 05/12/16 at 14:02 ; Status DC Al Hydrox/Mg Hydrox/Simethicone (Mag-Al Plus Susp Liq) 30 ml ONCE ONCE PO Last administered on 05/12/16 10:12; Start 05/12/16 at 10:00; Stop 05/12/16 at 10:01; Status DC Lidocaine HCl (Xylocaine 2% Viscous) 15 ml ONCE ONCE PO Last administered on 10:12; Start 05/12/16 at 10:00; Stop 05/12/16 at 10:01; Status DC Ketorolac Tromethamine (Toradol Inj) 30 mg ONCE ONCE IV PUSH Last administered on 05/12/16 10:12; Start 05/12/16 at 10:00; Stop 05/12/16 at 10:01 ; Status DC Morphine Sulfate (Morphine Inj) 4 mg ONCE ONCE IV PUSH Last administered on 11:38; Start 05/12/16 at 11:30; Stop 05/12/16 at 11:31; Status DC Iohexol 75 ml 75 ml STK-MED ONCE IV Last administered on 05/12/16 12:10; Start 05/12/16 at 12:10; Stop 05/12/16 at 12:11; Status DC Sodium Chloride (NS 1000 ml Inj) 1,000 ml @ 100 mls/hr Q10H IV Last administered on 05/13/16 10:25; Start 05/12/16 at 13:46 IV Flush (NS Flush) 2 ml UNSCH PRN FLUSH FLUSH AFTER USING IV ACCESS; Start at 14:00 IV Flush (NS Flush) 2 ml BID FLUSH ; Start 05/12/16 at 21:00 Ondansetron HCl (Zofran Inj) 4 mg Q6H PRN IVP NAUSEA OR VOMITING; Start at 14:00 Magnesium Hydroxide (Milk Of Magnbrijesh Liq) 30 ml Q12H PRN PO CONSTIPATION; Start 05/12/16 at 14:00 Naloxone HCl (Narcan Inj) 0.4 mg UNSCH PRN IV SEE LABEL COMMENTS; Start at 14:00 A/P Assessment and Plan 41-year-old male with left-sided chest pain radiating down to the upper abdomen. left sided chest pain -Occurred with cough. May be secondary to pleurisy. -Unlikely cardiac in nature. -asymptomatic since he was last seen. troponin's negative. Jaundice -improved. -see below. Hepatitis -LFTs has not trend down and still elevated. -CT scan of abdomen and chest were review and not impressive, lipase negative. liver us not impression. -GI recommend AFP, ANIL, ASMA, AMA, Ceruloplasmin, Alpha 1 antitrypsin, Ferritin , Iron saturation, Monitor LFT, Acetaminophen level. further recommendations depending results. -avoid anything toxic to lo DVTs prophylaxis -SCDs Katlin Zapien MD May 13, 2016 13:40
[2016-05-13 16:00] VITALS: BP 143/77; PULSE 70; RESP 17; TEMP 96.5; O2SAT 98
[2016-05-13 20:00] VITALS: BP 146/86; PULSE 68; RESP 21; TEMP 98.1; O2SAT 99
[2016-05-14] VITALS: BP 141/79; PULSE 102; RESP 20; TEMP 96.7; O2SAT 99
[2016-05-14 05:38] LABS: INDIRECT BILIRUBIN 1.3 MG/DL (0.0-0.8); TOTAL BILIRUBIN ADULT 4.9 MG/DL (0.2-1.0)
[2016-05-14] MEDS: SODIUM CHLOR 0.9% 1000 ML INJ 1,000 ML IV SCH ×2 (05:41→17:16)
[2016-05-14 08:00] VITALS: BP 144/81; PULSE 64; RESP 18; TEMP 97.1; O2SAT 98
[2016-05-14] MEDS: SODIUM CHLORIDE 0.9% FLUSH 5 ML FLUSH FLUSH SCH ×2 (08:31→21:00)
--- NOTE | 2016-05-14 09:20 | HHI.GIFU ---
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 Throat is clear. NECK: Neck is supple, no JVD, no lymphadenopathy. CHEST: Chest is clear to auscultation and percussion. CARDIAC: Regular rate and rhythm with no murmur gallop or rubs. ABDOMEN: Soft, nondistended, nontender; no hepatosplenomegaly; bowel sounds are present in all four quadrants. EXTREMITIES: No clubbing, cyanosis, or edema. SKIN: Normal; no rash; jaundice. 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 Available Data (labs, X- Rays, Procedues) : Laboratory Tests Test 05/12/16 05/12/16 05/12/16 05/13/16 10:00 16:00 23:50 04:43 White Blood Count 5.8 TH/MM3 4.6 TH/MM3 Red Blood Count 5.00 MIL/MM3 4.51 MIL/MM3 Hemoglobin 15.3 GM/DL 14.0 GM/DL Hematocrit 44.8 % 40.0 % Mean Corpuscular Volume 89.5 FL 88.7 FL Mean Corpuscular Hemoglobin 30.6 PG 31.0 PG Mean Corpuscular Hemoglobin 34.2 % 35.0 % Concent Red Cell Distribution Width 14.6 % 14.5 % Platelet Count 172 TH/MM3 167 TH/MM3 Mean Platelet Volume 10.0 FL 10.1 FL Neutrophils (%) (Auto) 54.4 % Lymphocytes (%) (Auto) 30.5 % Monocytes (%) (Auto) 13.6 % Eosinophils (%) (Auto) 1.0 % Basophils (%) (Auto) 0.5 % Neutrophils # (Auto) 3.2 TH/MM3 Lymphocytes # (Auto) 1.8 TH/MM3 Monocytes # (Auto) 0.8 TH/MM3 Eosinophils # (Auto) 0.1 TH/MM3 Basophils # (Auto) 0.0 TH/MM3 CBC Comment DIFF FINAL Differential Comment Prothrombin Time 10.7 SEC Prothromb Time International 1.0 RATIO Ratio Activated Partial 28.4 SEC Thromboplast Time D-Dimer Quantitative (PE/DVT) 0.99 MG/L FEU Sodium Level 136 MEQ/L 141 MEQ/L Potassium Level 4.2 MEQ/L 4.0 MEQ/L Chloride Level 99 MEQ/L 104 MEQ/L Carbon Dioxide Level 27.5 MEQ/L 27.3 MEQ/L Anion Gap 10 MEQ/L 10 MEQ/L Blood Urea Nitrogen 11 MG/DL 12 MG/DL Creatinine 0.98 MG/DL 0.87 MG/DL Estimat Glomerular Filtration 85 ML/MIN Rate Random Glucose 96 MG/DL 77 MG/DL Calcium Level 8.9 MG/DL 8.6 MG/DL Magnesium Level 2.3 MG/DL Total Bilirubin 7.4 MG/DL 7.1 MG/DL Aspartate Amino Transf 1823 U/L 1556 U/L (AST/SGOT) Alanine Aminotransferase 3662 U/L 3158 U/L (ALT/SGPT) Alkaline Phosphatase 199 U/L 152 U/L Total Creatine Kinase 139 U/L Creatine Kinase MB 1.8 NG/ML Troponin I LESS THAN 0.02 LESS THAN 0.02 LESS THAN 0.02 NG/ML NG/ML NG/ML Total Protein 9.0 GM/DL 7.3 GM/DL Albumin 3.7 GM/DL 3.2 GM/DL Lipase 142 U/L Direct Bilirubin 5.4 MG/DL Indirect Bilirubin 1.7 MG/DL Hepatitis A IgM Antibody NEGATIVE Hepatitis B Surface Antigen POSITIVE Hepatitis B Core IgM Antibody REACTIVE Hepatitis C Antibody NEGATIVE Test 05/13/16 05/14/16 12:46 04:17 Iron Level 122 MCG/DL Total Iron Binding Capacity 407 MCG/DL Percent Iron Saturation 29.9 % Ferritin 2162 NG/ML Tumor Marker Alpha Fetoprotein 71.3 NG/ML Acetaminophen Level LESS THAN 2.0 MCG/ML Total Bilirubin 4.9 MG/DL Direct Bilirubin 3.6 MG/DL Indirect Bilirubin 1.3 MG/DL Aspartate Amino Transf 1162 U/L (AST/SGOT) Alanine Aminotransferase 2491 U/L (ALT/SGPT) Alkaline Phosphatase 158 U/L Total Protein 7.1 GM/DL Albumin 2.9 GM/DL ASSESSMENT/PLAN: acute hepatitis B-improving, no signs of liver failure Recommendations fax results to department of health we will wait and see if he will clear virus on his own,if still present at 6 month or worsening labs or clinical status treatment will be offered observe for 1 more day if dc fu office or pcp in 1-2 weeks with repeat lfts, cbc, inr educated about mode of transmission, protection family and contact to be screened and vaccinated-they will need to contact pcp/ department of health It was a pleasure seeing Kwasi Lucio. Thank you for this consult. Entered by: Iris Rivera MD May 14, 2016 09:20
[2016-05-14 12:00] VITALS: BP 141/92; PULSE 64; RESP 12; TEMP 95.2; O2SAT 98
[2016-05-14 12:05] LABS: PROTHROMBIN TIME - PATIENT 11.2 SEC (9.8-11.6)
--- NOTE | 2016-05-14 15:07 | HHI.PR ---
Subjective Remarks f/u for hepatitis patient has no complaints. Denied any abdominal pain, N/V. remains afebrile. tolerated diet. 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 his is at bedside. Objective Vitals Vital Signs Date Time Temp Pulse Resp B/P Pulse Ox O2 Delivery O2 Flow Rate FiO2 05/14/16 12:00 95.2 64 12 141/92 98 05/14/16 08:00 97.1 64 18 144/81 98 05/14/16 00:00 96.7 102 20 141/79 99 05/13/16 20:00 98.1 68 21 146/86 99 05/13/16 16:00 96.5 70 17 143/77 98 I/O 05/13/16 05/13/16 05/13/16 05/14/16 05/14/16 05/14/16 07:00 15:00 23:00 07:00 15:00 23:00 Intake Total 563 ml 375 ml 1773 ml 360 ml 784 ml Output Total 250 ml Balance 313 ml 375 ml 1773 ml 360 ml 784 ml Intake Oral 0 ml 375 ml 120 ml 360 ml IV Total 563 ml 1653 ml 784 ml Output Urine Total 250 ml # Voids 2 1 2 # Bowel Movements 0 0 0 1 Result Diagram: 05/13/16 0443 05/12/16 2350 Objective Remarks GENERAL: SKIN: Warm and dry.mildly jaundice. HEAD: Normocephalic. EYES: + scleral icterus improved. No injection or drainage. NECK: Supple, trachea midline. No JVD or lymphadenopathy. CARDIOVASCULAR: Regular rate and rhythm without murmurs, gallops, or rubs. RESPIRATORY: Breath sounds equal bilaterally. No accessory muscle use. GASTROINTESTINAL: Abdomen soft, non-tender, nondistended. MUSCULOSKELETAL: No cyanosis, or edema. BACK: Nontender without obvious deformity. No CVA tenderness. Medications and IVs Current Medications IV Flush (NS Flush) 2 ml UNSCH PRN IVF FLUSH AFTER USING IV ACCESS Last administered on 05/12/16 11:38; Start 05/12/16 at 10:00; Stop 05/12/16 at 14:02 ; Status DC Al Hydrox/Mg Hydrox/Simethicone (Mag-Al Plus Susp Liq) 30 ml ONCE ONCE PO Last administered on 05/12/16 10:12; Start 05/12/16 at 10:00; Stop 05/12/16 at 10:01; Status DC Lidocaine HCl (Xylocaine 2% Viscous) 15 ml ONCE ONCE PO Last administered on 10:12; Start 05/12/16 at 10:00; Stop 05/12/16 at 10:01; Status DC Ketorolac Tromethamine (Toradol Inj) 30 mg ONCE ONCE IV PUSH Last administered on 05/12/16 10:12; Start 05/12/16 at 10:00; Stop 05/12/16 at 10:01 ; Status DC Morphine Sulfate (Morphine Inj) 4 mg ONCE ONCE IV PUSH Last administered on 11:38; Start 05/12/16 at 11:30; Stop 05/12/16 at 11:31; Status DC Iohexol 75 ml 75 ml STK-MED ONCE IV Last administered on 05/12/16 12:10; Start 05/12/16 at 12:10; Stop 05/12/16 at 12:11; Status DC Sodium Chloride (NS 1000 ml Inj) 1,000 ml @ 100 mls/hr Q10H IV Last administered on 05/14/16 05:41; Start 05/12/16 at 13:46 IV Flush (NS Flush) 2 ml UNSCH PRN FLUSH FLUSH AFTER USING IV ACCESS; Start at 14:00 IV Flush (NS Flush) 2 ml BID FLUSH Last administered on 05/14/16 08:31; Start 05/12/16 at 21:00 Ondansetron HCl (Zofran Inj) 4 mg Q6H PRN IVP NAUSEA OR VOMITING; Start at 14:00 Magnesium Hydroxide (Milk Of Magnesia Liq) 30 ml Q12H PRN PO CONSTIPATION; Start 05/12/16 at 14:00 Naloxone HCl (Narcan Inj) 0.4 mg UNSCH PRN IV SEE LABEL COMMENTS; Start at 14:00 A/P Assessment and Plan 41-year-old male with left-sided chest pain radiating down to the upper abdomen. left sided chest pain -Occurred with cough. May be secondary to pleurisy. -Unlikely cardiac in nature. -asymptomatic after day 1 of hospitalization. troponin's negative. Jaundice -this might be patient's normal skin color. he did said he did not noticed any color change in his skin. elevated LFTs -LFTs has not trend down and still elevated. -CT scan of abdomen and chest were review and not impressive, lipase negative. liver us not impression. -GI recommend AFP, ANIL, ASMA, AMA, Ceruloplasmin, Alpha 1 antitrypsin, Ferritin , Iron saturation, Monitor LFT, Acetaminophen level. -Hepatitis B is positive. Acute Hepatitis B -improving and asymptomatic now. no signs of liver failure. -per GI observe for 1 more day. -wait and see if he will clear virus on his own, if still present at 6 months or worsening labs or clinical status treatment will be offered. -results to be faxed to health department. -education given to patient. -upon dc need 1-2 weeks repeat lfts, cbc, and inr -f/u in health department. Discharge Planning will observe for 1 more day and if continue to improve can d/c tomorrow. Katlin Zapien MD May 14, 2016 15:07
[2016-05-14 16:00] VITALS: BP 143/86; PULSE 70; RESP 16; TEMP 96.7; O2SAT 100
[2016-05-14 20:00] VITALS: BP 144/84; PULSE 70; RESP 16; TEMP 97.3; O2SAT 98
[2016-05-15] VITALS: BP 127/78; PULSE 79; RESP 16; TEMP 97.2; O2SAT 99
[2016-05-15] MEDS: SODIUM CHLOR 0.9% 1000 ML INJ 1,000 ML IV SCH ×2 (01:46→11:46)
[2016-05-15 05:39] LABS: MEAN CELL VOLUME 89.6 FL (80.0-100.0); MEAN CORPUSCULAR HGB CONC 33.4 % (32.0-36.0); PLATELET COUNT 168 TH/MM3 (150-450); RED BLOOD COUNT 4.58 MIL/MM3 (4.50-5.90); RED CELL DISTRIBUTION WIDTH 14.3 % (11.6-17.2); REVIEW FLAG FINAL; WHITE BLOOD COUNT 4.1 TH/MM3 (4.0-11.0)
[2016-05-15 06:13] LABS: TOTAL BILIRUBIN ADULT 3.9 MG/DL (0.2-1.0)
[2016-05-15 08:00] VITALS: BP 145/80; PULSE 60; RESP 18; TEMP 96.5; O2SAT 99
[2016-05-15] MEDS: SODIUM CHLORIDE 0.9% FLUSH 5 ML FLUSH FLUSH SCH (09:00)
[2016-05-15 12:00] VITALS: BP 148/99; PULSE 64; RESP 17; TEMP 97.2; O2SAT 100
--- NOTE | 2016-05-15 12:33 | HHI.DS ---
Discharge Summary Admission Date May 12, 2016 at 14:01 Discharge Date: May 15, 2016 Admitting Diagnosis acute hepatitis, hyperbilirubinemia (1) Acute hepatitis B ICD Code: B16.9 Diagnosis: Principal Procedures none Brief History - From Admission This is a 41-year-old male with no past medical history whose presented with a cough that produces left-sided chest pain that went down to the abdomen for the past 2 weeks. Patient is Japanese-speaking but understands Chinese. His stepson is at the bedside. Patient declined medical director occupational health and wanted his stepson to translate. This pain has been intermittent and resolved on its own. Patient stated that the cough elicited the pain. He denies any nausea or vomiting. Denied any diarrhea or constipation. Patient stated that he has not had any recent travels. Patient stated that he denied any vaccination for hepatitis. Denies any history of alcohol use. When I asked patient about what the yellowing of his skin patient did not notice it. His also did not notice it. is at the bedside. No family history of any cancer. Patient stated all family members are healthy. CBC/BMP: 05/15/16 0445 05/12/16 2350 Significant Findings Laboratory Tests Test 05/12/16 05/12/16 05/13/16 05/14/16 16:00 23:50 12:46 04:17 Troponin I LESS THAN 0.02 LESS THAN 0.02 NG/ML NG/ML (0.02-0.05) (0.02-0.05) Total Bilirubin 7.1 MG/DL 4.9 MG/DL (0.2-1.0) (0.2-1.0) Direct Bilirubin 5.4 MG/DL 3.6 MG/DL (0.0-0.2) (0.0-0.2) Indirect Bilirubin 1.7 MG/DL 1.3 MG/DL (0.0-0.8) (0.0-0.8) Aspartate Amino Transf 1556 U/L 1162 U/L (AST/SGOT) (15-37) (15-37) Alanine Aminotransferase 3158 U/L 2491 U/L (ALT/SGPT) (12-78) (12-78) Alkaline Phosphatase 152 U/L 158 U/L (45-117) (45-117) Albumin 3.2 GM/DL 2.9 GM/DL (3.4-5.0) (3.4-5.0) Hepatitis B Surface Antigen POSITIVE (NEGATIVE) Hepatitis B Core IgM Antibody REACTIVE (NEGATIVE) Ferritin 2162 NG/ML (26-388) Tumor Marker Alpha Fetoprotein 71.3 NG/ML (0.5-8.0) Acetaminophen Level LESS THAN 2.0 MCG/ML (10.0-30.0) Hhgkp-5-Gxcntbigogo 212 mg/dL (100 - 190) Test 05/15/16 04:45 Total Bilirubin 3.9 MG/DL (0.2-1.0) Direct Bilirubin 2.9 MG/DL (0.0-0.2) Indirect Bilirubin 1.0 MG/DL (0.0-0.8) Aspartate Amino Transf 1317 U/L (AST/SGOT) (15-37) Alanine Aminotransferase 2742 U/L (ALT/SGPT) (12-78) Alkaline Phosphatase 181 U/L (45-117) Albumin 3.2 GM/DL (3.4-5.0) Imaging Last Impressions CT Angiography 05/12/16 1126 Signed Impressions: Service Date/Time: Thursday, May 12, 2016 11:55 - CONCLUSION: 1. Minimal right basilar dependent atelectatic changes. 2. Otherwise negative. No acute infiltrate or pulmonary embolus to explain current clinical symptoms. oY Cage MD Chest X-Ray 05/12/16 0946 Signed Impressions: Service Date/Time: Thursday, May 12, 2016 10:15 - CONCLUSION: No acute cardiopulmonary process. Yo Cage MD Liver Ultrasound 05/12/16 0000 Signed Impressions: Service Date/Time: Thursday, May 12, 2016 14:48 - CONCLUSION: 1. Mild hepatosplenomegaly. 2. 5 mm calcified nonobstructing midpole right renal calculus. Tyrell Wilkinson MD Abdomen/Pelvis CT 05/12/16 0000 Signed Impressions: Service Date/Time: Thursday, May 12, 2016 11:58 - CONCLUSION: Possible medullary nephrocalcinosis. No acute CT findings in the abdomen or pelvis. Alber Vivar MD PE at Discharge GENERAL: SKIN: Warm and dry.mildly jaundice. HEAD: Normocephalic. EYES: + scleral icterus improved. No injection or drainage. NECK: Supple, trachea midline. No JVD or lymphadenopathy. CARDIOVASCULAR: Regular rate and rhythm without murmurs, gallops, or rubs. RESPIRATORY: Breath sounds equal bilaterally. No accessory muscle use. GASTROINTESTINAL: Abdomen soft, non-tender, nondistended. MUSCULOSKELETAL: No cyanosis, or edema. BACK: Nontender without obvious deformity. No CVA tenderness. Pt update on day of discharge f/u for acute hepatitis B. Patient very anxious to go home. He stated he is eating well. Denied any abdominal pain, N/V. Hospital Course Acute Hepatitis B -symptoms resolved after days 1. -GI consulted. -work up obtain and positive for Hepatitis B. -Per GI wait and see if he will clear virus on his own, if still present at 6 months or worsening labs or clinical status treatment will be offered. -results to be faxed to health department. -education given to patient in Japanese for CBC website. -patient to f/u with GI with labs. -f/u in health department. Pt Condition on Discharge: Stable Discharge Disposition: Discharge Home Discharge Time: <= 30 minutes Discharge Instructions DIET: Follow Instructions for: As Tolerated, No Restrictions Activities you can perform: Regular-No Restrictions Follow up Referrals: Gastroenterology - 2 Weeks @ [facility] PCP Follow-up - 1 Week New Orders: HEPATIC FUNCTION GALLOWAY - 1 Week Medication Profile: No Active Prescriptions or Reported Alvarados Katlin Zapien MD May 15, 2016 12:33
--- NOTE | 2016-05-15 12:33 | HHI.DCPOC ---
Discharge Care Plan Diagnosis: (1) Acute hepatitis B Goals to Promote Your Health * To prevent worsening of your condition and complications * To maintain your health at the optimal level Directions to Meet Your Goals Take your medications as prescribed Follow your dietary instruction Follow activity as directed Keep your appointments as scheduled Take your immunizations and boosters as scheduled If your symptoms worsen call your PCP, if no PCP go to Urgent Care Center or Emergency Room Smoking is Dangerous to Your Health. Avoid second hand smoke Call the 24-hour hour crisis hotline for domestic abuse at Katlin Zapien MD May 15, 2016 12:33
[2016-05-16 11:51] LABS: HEP B DNA R2 5.35 (())
[2016-05-16 13:54] LABS: MITOCHONDRIAL ABS LESS THAN 20.0 U (())
== END 2016-05-15 13:31 | disposition home or self-care (01) | DRG 443 ==
LOC: NEPC 09:16 → NEDA 14:01 → N07B 18:38
PROVIDERS: ADMIT Family Medicine; ATTEND Family Medicine
DX: B16.9 Acute hepatitis B without delta-agent and without hepatic coma (principal); R16.2 Hepatomegaly with splenomegaly, not elsewhere classified; R07.9 Chest pain, unspecified
CPT/HCPCS: 71010; 71275; 74177; 76705; 80048; 80053; 80074; 80076; 80307; 82103; 82105; 82390; 82550; 82552; 82728; 83520; 83540; 83550; 83690; 83735; 84484; 85025; 85027; 85379; 85610; 85730; 86038; 86256; 87517; 93005; 96374; 96375; J1885; J2270; J7030; Q9967